=== PATIENT | female | born 1955 | race Caucasian/White ===

== ENCOUNTER 2020-08-01 11:28 | Emergency (ER) | payer MEDICAID ==
[~2020-08-01] VITALS: Ht 162.6 cm; Wt 68.2 kg
[2020-08-01 11:34] VITALS: BP 135/99
[2020-08-01] MEDS ORDERED: HYDR-3965 PO (12:06)
[2020-08-01] MEDS ORDERED: NAPR-56 PO (12:06)
[2020-08-01] MEDS ORDERED: HYDROcodone/acetaminophen 10/325mg tab PO ONE (12:10)
== END 2020-08-01 12:24 | disposition home or self-care (01) ==
LOC: ER 11:28
DX: M23.8X2 Other internal derangements of left knee (principal); J44.9 Chronic obstructive pulmonary disease, unspecified; F17.200 Nicotine dependence, unspecified, uncomplicated; F12.90 Cannabis use, unspecified, uncomplicated; Z79.899 Other long term (current) drug therapy; W01.0XXA Fall on same level from slipping, tripping and stumbling without subsequent striking against object, initial encounter; Y93.89 Activity, other specified; Y92.89 Other specified places as the place of occurrence of the external cause; Y99.8 Other external cause status
CPT/HCPCS: 29505; 73564; 99284